=== PATIENT | male | born 1965 | race American Indian/Alaskan Native ===

== ENCOUNTER 2018-01-04 07:33 | Emergency (ER) | payer OTHER ==
[~2018-01-04] VITALS: Ht 175.3 cm; Wt 86.6 kg
[~2018-01-04 07:33] MED LIST: AUGMENTIN 875-1 EACH PO; CELEBREX200 MG PO; CEPHALEXIN500 MG PO; NORCO 5-325 TA1 EACH PO
[2018-01-04] MEDS ORDERED: ONDANSETRON ODT8 MG PO (10:40)
[2018-01-04] MEDS ORDERED: OMEPRAZOLE20 MG PO (10:40)
--- NOTE | 2018-01-05 17:21 | EKG ---
[facility] [address] [facility] [address] [place], [place] [address] Signed Normal sinus rhythm Right bundle branch block Abnormal ECG No previous ECGs available Confirmed by ELISEO GAUTHIER DO ([id number]) on 01/05/2018 5:21:28 PM Electronically Signed By: ELISEO GAUTHIER DO 01/05/18 1721 PATIENT NAME: PATTIELUTHER Electrocardiogram DATE OF : 67 PHYSICIAN: ELISEO GAUTHIER DO REPORT #: [id number] REPORT IS CONFIDENTIAL AND NOT TO BE RELEASED WITHOUT AUTHORIZATION
== END 2018-01-04 17:37 | disposition home or self-care (01) ==
LOC: ED 07:33
DX: K29.00 Acute gastritis without bleeding (principal); E86.0 Dehydration; F17.200 Nicotine dependence, unspecified, uncomplicated
CPT/HCPCS: 80053; 83690; 85025; 93005; 93010; 96374; 99285; J7030

== ENCOUNTER 2018-08-27 15:51 | Observation (INO) | payer OTHER ==
[~2018-08-27] VITALS: Ht 175.3 cm; Wt 86.3 kg
[~2018-08-27 15:51] MED LIST changes: +OMEPRAZOLE20 MG PO; +ONDANSETRON ODT8 MG PO
--- NOTE | 2018-08-27 19:30 | NUR ---
PATIENT JUST BEING CHECKED IN. WILL BE BACK TO DO ASSESSMENT.
--- NOTE | 2018-08-27 21:00 | NUR ---
PATIENT GIVEN 1 NORCO FOR HIS HAND AND FOOT PAIN.
--- NOTE | 2018-08-27 23:10 | NUR ---
PATIENT RESTING QUIETLY, EYES CLOSED, RESPIRATIONS REGULAR AND EVEN.
--- NOTE | 2018-08-28 01:10 | NUR ---
PATIENT CONTINUES TO REST QUIETLY, EYES CLOSED RESPIRATIONS, NORMAL.
--- NOTE | 2018-08-28 01:55 | NUR ---
VITALS AND I&OS DONE AND CHARTED. BEDSIDE TABLE AND CALL LIGHT IN REACH.
--- NOTE | 2018-08-28 03:15 | NUR ---
PATIENT USING THE URINAL AT THIS TIME.
--- NOTE | 2018-08-28 05:00 | NUR ---
PATIENT RESTING QUIETLY, EYES CLOSED, RESPIRATIONS REGULAR AND EVEN. PATIENT HAS HAD NO MORE C/O PAIN AT THIS TIME.
--- NOTE | 2018-08-28 07:36 | NUR ---
REPORT RECEIVED FORM MARINE FUEL DOCK ATTENDANT RN. PT IN BED AAO. BREAKFAST ORDERED. NO FURTHER NEEDS. CALL LIGHT IN REACH.
--- NOTE | 2018-08-28 10:16 | NUR ---
MED REC COMPLETE
--- NOTE | 2018-08-28 11:41 | NUR ---
PT OOB TO SHOWER. FEET WASHED WITH SOAP AND WATER, CREAM APPLIED. PT REPORTING PAIN 10/26. 2ND JASPER ADMINISNTERED. PT BACK TO BED. CALL LIGHT IN REACH. DENIES NEEDS.
--- NOTE | 2018-08-28 13:00 | NUR ---
DR MENDEZ INTO SEE PT. PLAN OF CARE DISCUSSED. NEW ORDERS RECEIVED. CALL LIGHT IN REACH. WATER REFRESHED.
--- NOTE | 2018-08-28 17:00 | NUR ---
DINNER AT BEDSIDE. PT REPORTS PAIN TOLERABLE. ABX HUNG. CALL LIGHT IN REACH.
--- NOTE | 2018-08-28 20:00 | NUR ---
PATIENT SITTING IN BED WATCHING GOLF. PATIENT'S APPITITE FOR DINNER WAS POOR. PATIENT DOES NOT WANT ANY PAIN MEDS AT THIS TIME.
--- NOTE | 2018-08-28 21:00 | NUR ---
CHARGE NURSE ROUNDING NOTE: AWAKE, WATCHING TV, CONTINUE SON CONTACT ISOLATION FOR REACTIVE SYPHILIS LAB TEST. IVF INFUSING W/O PROBLEMS. FRESH WATER AND POP GIVEN ON REQUETS. COOPERATIVE. CALL LIGHT AT BEDSIDE, NO REQUEST
--- NOTE | 2018-08-28 21:51 | NUR ---
PATIENT RESTING QUIETLY IN BED. BILAT FOOT AND HAND PAIN 10/26. 1 PO NORCO GIVEN. PATIENT'S WATER IS REFILLED AND URINAL EMPTY. PATIENT GOING TO TRY AND GET SOME SLEEP.
--- NOTE | 2018-08-29 00:10 | NUR ---
PATIENT RESTING QUIETLY SUPINE, EYES CLOSED, RESPIRATIONS REGULAR AND EVEN. CALL LIGHT IN REACH.
--- NOTE | 2018-08-29 02:15 | NUR ---
PATIENT RESTING QUIETLY, EYES CLOSED AND NO MORE C/O PAIN, CALL LIGHT IN REACH AND HAS BEEN VOIDING THROUGH THE NIGHT USING HIS URINAL.
--- NOTE | 2018-08-29 03:11 | NUR ---
JUST CHANGED OUT PATIENT'S IV BAG. STILL LR WITH 20 OF KCL AT 125MLS AN HOUR. PATIENT STILL RESTING QUIETLY EYES CLOSED, RESPIRATIONS EVEN, CALL LIGHT IN REACH.
--- NOTE | 2018-08-29 04:56 | NUR ---
PATIENT RESTING QUIETLY ON HIS RIGHT SIDE. NO C/O PAIN SINCE HIS 1 NORCO AT EVENING MED PASS. PATIENT'S EYES ARE CLOSED. HE HAD ME REMOVE HIS SOCKS AT THE BEGINING OF THE EVENING SO THE COULD GET SOME AIR ON HIS FEET. IV IS STILL RUNNING LR AT 125MLS AN HOUR. CALL LIGHT IS IN REACH.
--- NOTE | 2018-08-29 07:26 | NUR ---
0710: BEDSIDE REPORT RECIEVED FROM DARIUS VEGA. PT DENIES ANY NEW PROBLEMS AND STATES HE IS OK. CALL BENOIT IS WITHIN REACH.
--- NOTE | 2018-08-29 09:17 | NUR ---
PT AWOKE TO VOICE AND RATES HIS DISCOMFORT AT A 6/10 WHICH HE STATES IS ACCEPTABLE TO HIM. PT UP TO THE BR AND SHOWERED PRIOR TO THE USE OF HIS HYDROCORTISONE CREAM.
--- NOTE | 2018-08-29 10:25 | NUR ---
PT SLEEPING AT THIS TIME.
[2018-08-29] MEDS ORDERED: ADVIL200 M1 PO (12:04)
[2018-08-29] MEDS ORDERED: HYDROCORTISO28.35 GM TOP (12:06)
== END 2018-08-29 14:18 | disposition home or self-care (01) ==
LOC: ED 15:51 → MS 15:53
PROVIDERS: ADMIT Internal Medicine
DX: L03.116 Cellulitis of left lower limb (principal); L03.115 Cellulitis of right lower limb; A53.9 Syphilis, unspecified; R52 Pain, unspecified; F17.200 Nicotine dependence, unspecified, uncomplicated; F10.10 Alcohol abuse, uncomplicated
CPT/HCPCS: 36415; 73630; 80048; 80053; 83605; 83735; 84100; 85025; 85610; 85651; 85730; 86592; 86780; 96365; 96372; 96375; 96376; 99284-25; G0378; J0696; J1450; J2510; J3480; J7120

== ENCOUNTER 2018-09-20 20:05 | Emergency (ER) | payer OTHER ==
[~2018-09-20] VITALS: Ht 175.3 cm; Wt 86.3 kg
[~2018-09-20 20:05] MED LIST changes: +ADVIL200 M1 PO; +HYDROCORTISO28.35 GM TOP
--- OUTSIDE RECORDS SUMMARY | 2018-09-20 20:08 | XMS ---
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 Cyrus has no Care Guidelines for this patient. Martin VISIT COUNT (12 MO.) [address] [facility] TOTAL 3 NOTE: Visits indicate total known visits. ED/C VISIT TRACKING (12 MO.) 09/20/2018 20:[address] [facility] [address] [facility] [place] TYPE: Emergency COMPLAINT: - FOOT PAIN 08/27/2018 15:52 [facility] [place] TYPE: Emergency COMPLAINT: - EXTREMITY SWELLING NON INJURY 01/04/2018 07:33 [facility] [place] TYPE: Emergency COMPLAINT: - VOMITING DIAGNOSES: - Nicotine dependence, unspecified, uncomplicated - Hematemesis - Dehydration - Acute gastritis without bleeding INPATIENT VISIT TRACKING (12 MO.) 08/27/2018 15:53 [facility] [place] TYPE: Observation COMPLAINT: - BILAT LOWER EXT CELLULITES DIAGNOSES: - Cellulitis of right lower limb - Nicotine dependence, unspecified, uncomplicated - Cellulitis of left lower limb - Alcohol abuse, uncomplicated - Syphilis, unspecified - Pain, unspecified [email or web address]
[2018-09-20] MEDS ORDERED: KEFLEX500 MG PO (23:21)
== END 2018-09-20 23:35 | disposition home or self-care (01) ==
LOC: ED 20:05
DX: R60.0 Localized edema (principal); L98.9 Disorder of the skin and subcutaneous tissue, unspecified; F17.200 Nicotine dependence, unspecified, uncomplicated
CPT/HCPCS: 73630; 80053; 85025; 99284

== ENCOUNTER 2020-06-03 23:52 | Emergency (ER) | payer OTHER ==
[~2020-06-03] VITALS: Ht 175.3 cm; Wt 95.3 kg
[~2020-06-03 23:52] MED LIST changes: +KEFLEX500 MG PO
--- OUTSIDE RECORDS SUMMARY | 2020-06-03 23:54 | XMS ---
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 Cyrus has no Care Guidelines for this patient. Care History Medical/Surgical 09/21/2018 [facility] - PATIENT HAS RECEIVED TRANSPORTATION FROM [facility] IN THE PAST- PATIENT IS AWARE OF THE TRANSPORTATION RESOURCES. - PATIENT HAS MEDICAID AND HAS TRANSPORTATION PROVIDED THROUGH MEDICAID WELL. - PATIENT HAS NOT ESTABLISHED WITH A PCP AT [facility] SINCE 2017 AND HAS NOT BEEN SEEN BY A PROVIDER SINCE THEN. - IF PATIENT IS SEEN IN THE ED PLEASE DIRECT PATIENT TO ESTABLISH CARE WITH [facility]. - RN COKE PRODUCTION HEATER AT [facility] HAVE BEEN MADE AWARE OF PATIENT ED VISIT ALONG WITH PATIENT RECENT DISCHARGE FROM THE HOSPITAL. E.D. VISIT COUNT (12 MO.) 1 [facility] TOTAL 1 NOTE: Visits indicate total known visits. ED/UCC VISIT TRACKING (12 MO.) 06/03/2020 23:52 [facility] [place] TYPE: Emergency COMPLAINT: - FALL INPATIENT VISIT TRACKING (12 MO.) No inpatient visits to display in this time frame [email or web address]
== END 2020-06-04 05:44 | disposition home or self-care (01) ==
LOC: ED 23:52
DX: F10.129 Alcohol abuse with intoxication, unspecified (principal); S00.83XA Contusion of other part of head, initial encounter; S00.511A Abrasion of lip, initial encounter; Y90.8 Blood alcohol level of 240 mg/100 ml or more; W19.XXXA Unspecified fall, initial encounter
CPT/HCPCS: 70450; 70486; 72125; 73030; 80053; 85025; 99284-25

== ENCOUNTER 2021-05-22 21:33 | Emergency (ER) | payer OTHER ==
[~2021-05-22] VITALS: Ht 175.3 cm; Wt 95.4 kg
--- OUTSIDE RECORDS SUMMARY | 2021-05-22 21:40 | XMS ---
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 Cyrus has no Care Guidelines for this patient. Care History Medical/Surgical 09/21/2018 [facility] - PATIENT HAS RECEIVED TRANSPORTATION FROM [employer] IN THE PAST- PATIENT IS AWARE OF THE TRANSPORTATION RESOURCES. - PATIENT HAS MEDICAID AND HAS TRANSPORTATION PROVIDED THROUGH MEDICAID WELL. - PATIENT HAS NOT ESTABLISHED WITH A PCP AT [facility] SINCE 2017 AND HAS NOT BEEN SEEN BY A PROVIDER SINCE THEN. - IF PATIENT IS SEEN IN THE ED PLEASE DIRECT PATIENT TO ESTABLISH CARE WITH [facility]. - RN QUALITY CONTROL INSPECTOR HEADING AT [facility] HAVE BEEN MADE AWARE OF PATIENT ED VISIT ALONG WITH PATIENT RECENT DISCHARGE FROM THE HOSPITAL. E.D. VISIT COUNT (12 MO.) 2 [facility] TOTAL 2 NOTE: Visits indicate total known visits. ED/UCC VISIT TRACKING (12 MO.) 05/22/2021 21:34 [facility] [place] TYPE: Emergency COMPLAINT: - FALL 06/03/2020 23:52 [facility] [place] TYPE: Emergency COMPLAINT: - FALL DIAGNOSES: - Alcohol abuse with intoxication, unspecified - Unspecified fall, initial encounter - Contusion of other part of head, initial encounter - Blood alcohol level of 240 mg/100 ml or more - Abrasion of lip, initial encounter INPATIENT VISIT TRACKING (12 MO.) No inpatient visits to display in this time frame [email or web address]
== END 2021-05-22 23:30 | disposition home or self-care (01) ==
LOC: ED 21:33
DX: S50.01XA Contusion of right elbow, initial encounter (principal); M10.9 Gout, unspecified; W00.0XXA Fall on same level due to ice and snow, initial encounter
CPT/HCPCS: 73030; 73080; 99283-25